=== PATIENT | female | born 1985 | race Caucasian/White ===

== ENCOUNTER 2018-03-27 08:42 | Emergency (ER) | payer OTHER ==
--- NOTE | 2018-03-27 08:52 | ER Report ---
History and Physical Time Seen By MD: 08:52 HPI/ROS This is an otherwise healthy 32-year-old female who presented to the emergency department with 24 hours of intermittent severe right sided pelvic pain that waxes and wanes. When she is having the episodes she describes the pain as 10 out of 10. Yesterday the pain was generalized, but now is more focal. 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 She denies nausea, vomiting, or diarrhea. She denies vaginal discharge. No vaginal bleeding. Remainder of the 14 system rev: Yes Allergies: Coded Allergies: No Known Drug Allergies (Unverified , 03/27/18) Reviewed Nurses Notes: Yes Old Medical Records Reviewed: Yes Constitutional Vital Sign - Last 24 Hours 03/27/18 03/27/18 03/27/18 03/27/18 08:42 08:48 08:57 09:00 Temp 97.9 Pulse 41 45 Resp 16 B/P (MAP) 129/84 129/84 (99) 119/76 (90) Pulse Ox 98 99 O2 Delivery Room Air 03/27/18 03/27/18 03/27/18 03/27/18 09:12 09:27 09:30 09:42 Pulse 50 40 45 B/P (MAP) 112/74 (87) Pulse Ox 94 97 95 03/27/18 03/27/18 03/27/18 03/27/18 09:57 10:00 10:12 10:27 Pulse 47 50 42 B/P (MAP) 119/79 (92) Pulse Ox 98 96 97 03/27/18 03/27/18 03/27/18 03/27/18 10:30 10:35 10:50 10:55 Pulse 41 45 57 B/P (MAP) 122/79 (93) Pulse Ox 97 96 97 03/27/18 03/27/18 03/27/18 03/27/18 11:00 11:10 11:25 11:30 Pulse 41 46 B/P (MAP) 119/71 (87) 121/69 (86) Pulse Ox 98 95 Physical Exam General Appearance: The patient is alert, has no immediate need for airway protection and no current signs of toxicity. Eyes: Pupils equal and round no injection. Respiratory: Chest is non tender, lungs are clear to auscultation. Cardiac: regular rate and rhythm Gastrointestinal: Abdomen is soft and non tender, no masses, bowel sounds normal. TTP of the right pelvic region Extremities have full range of motion and are non tender. Skin: No rashes or lesions. DIFFERENTIAL DIAGNOSIS: After history and physical exam differential diagnosis was considered for ovarian torsion, ovarian cyst, , appendicitis Medical Decision Making Data Points Result Diagram: 03/27/18 0854 03/27/18 0854 Laboratory Hematology Test 03/27/18 08:46 03/27/18 08:54 Urine Color Yellow Urine Clarity Slightly-cloudy Urine pH 6.0 pH (4.8-9.5) Urine Specific Shellman 1.023 Urine Protein Negative mg/dL (NEGATIVE) Urine Glucose (UA) Negative mg/dL (NEGATIVE) Urine Ketones Negative mg/dL (NEGATIVE) Urine Blood Negative (NEGATIVE) Urine Nitrite Negative (NEGATIVE) Urine Bilirubin Negative (NEGATIVE) Urine Urobilinogen Negative mg/dL (0.2-1.9) Urine Leukocyte Esterase Negative (NEGATIVE) Urine RBC <1 /HPF (0-2/HPF) Urine WBC 1 /HPF (0-5/HPF) Urine Squamous Epithelial Cells Many /LPF (</=FEW) Urine Bacteria Few /HPF (NONE-FEW) Urine Mucus Few /HPF (NONE-FEW) Red Blood Count 4.81 M/uL (4.17-5.56) Mean Corpuscular Volume 95.6 fL (80.0-96.0) Mean Corpuscular Hemoglobin 32.8 pg (26.0-33.0) Mean Corpuscular Hemoglobin Concent 34.3 g/dL (32.0-36.0) Red Cell Distribution Width 13.7 % (11.5-14.5) Mean Platelet Volume 8.6 fL (7.2-11.1) Neutrophils (%) (Auto) 61.8 % (39.4-72.5) Lymphocytes (%) (Auto) 29.0 % (17.6-49.6) Monocytes (%) (Auto) 7.6 % (4.1-12.4) Eosinophils (%) (Auto) 0.8 % (0.4-6.7) Basophils (%) (Auto) 0.8 % (0.3-1.4) Nucleated RBC Relative Count (auto) 0.0 /100WBC Neutrophils # (Auto) 3.2 K/uL (2.0-7.4) Lymphocytes # (Auto) 1.5 K/uL (1.3-3.6) Monocytes # (Auto) 0.4 K/uL (0.3-1.0) Eosinophils # (Auto) 0.0 K/uL (0.0-0.5) Basophils # (Auto) 0.0 K/uL (0.0-0.1) Nucleated RBC Absolute Count (auto) 0.00 K/uL Sodium Level 140 mmol/L (137-145) Potassium Level 3.6 mmol/L (3.5-5.0) Chloride Level 102 mmol/L (98-107) Carbon Dioxide Level 29 mmol/L (22-31) Blood Urea Nitrogen 18 mg/dl (7-18) Creatinine 1.00 mg/dl (0.52-1.04) Glomerular Filtration Rate Calc > 60.0 Random Glucose 108 mg/dl (75-110) Calcium Level 9.3 mg/dl (8.4-10.2) Total Bilirubin 0.8 mg/dl (0.2-1.3) Aspartate Amino Transf (AST/SGOT) 38 U/L (0-35) Alanine Aminotransferase (ALT/SGPT) 34 U/L (0-56) Alkaline Phosphatase 52 U/L (0-126) Total Protein 7.8 g/dl (6.3-8.2) Albumin 4.4 g/dl (3.5-5.0) Human Chorionic Gonadotropin, Qual Negative (NEGATIVE) Chemistry Test 03/27/18 08:46 03/27/18 08:54 Urine Color Yellow Urine Clarity Slightly-cloudy Urine pH 6.0 pH (4.8-9.5) Urine Specific Shellman 1.023 Urine Protein Negative mg/dL (NEGATIVE) Urine Glucose (UA) Negative mg/dL (NEGATIVE) Urine Ketones Negative mg/dL (NEGATIVE) Urine Blood Negative (NEGATIVE) Urine Nitrite Negative (NEGATIVE) Urine Bilirubin Negative (NEGATIVE) Urine Urobilinogen Negative mg/dL (0.2-1.9) Urine Leukocyte Esterase Negative (NEGATIVE) Urine RBC <1 /HPF (0-2/HPF) Urine WBC 1 /HPF (0-5/HPF) Urine Squamous Epithelial Cells Many /LPF (</=FEW) Urine Bacteria Few /HPF (NONE-FEW) Urine Mucus Few /HPF (NONE-FEW) White Blood Count 5.1 k/uL (4.5-11.0) Red Blood Count 4.81 M/uL (4.17-5.56) Hemoglobin 15.8 g/dL (12.0-16.0) Hematocrit 46.0 % (34.0-47.0) Mean Corpuscular Volume 95.6 fL (80.0-96.0) Mean Corpuscular Hemoglobin 32.8 pg (26.0-33.0) Mean Corpuscular Hemoglobin Concent 34.3 g/dL (32.0-36.0) Red Cell Distribution Width 13.7 % (11.5-14.5) Platelet Count 211 K/uL (150-450) Mean Platelet Volume 8.6 fL (7.2-11.1) Neutrophils (%) (Auto) 61.8 % (39.4-72.5) Lymphocytes (%) (Auto) 29.0 % (17.6-49.6) Monocytes (%) (Auto) 7.6 % (4.1-12.4) Eosinophils (%) (Auto) 0.8 % (0.4-6.7) Basophils (%) (Auto) 0.8 % (0.3-1.4) Nucleated RBC Relative Count (auto) 0.0 /100WBC Neutrophils # (Auto) 3.2 K/uL (2.0-7.4) Lymphocytes # (Auto) 1.5 K/uL (1.3-3.6) Monocytes # (Auto) 0.4 K/uL (0.3-1.0) Eosinophils # (Auto) 0.0 K/uL (0.0-0.5) Basophils # (Auto) 0.0 K/uL (0.0-0.1) Nucleated RBC Absolute Count (auto) 0.00 K/uL Glomerular Filtration Rate Calc > 60.0 Calcium Level 9.3 mg/dl (8.4-10.2) Total Bilirubin 0.8 mg/dl (0.2-1.3) Aspartate Amino Transf (AST/SGOT) 38 U/L (0-35) Alanine Aminotransferase (ALT/SGPT) 34 U/L (0-56) Alkaline Phosphatase 52 U/L (0-126) Total Protein 7.8 g/dl (6.3-8.2) Albumin 4.4 g/dl (3.5-5.0) Human Chorionic Gonadotropin, Qual Negative (NEGATIVE) Urinalysis Test 03/27/18 08:46 Urine Color Yellow Urine Clarity Slightly-cloudy Urine pH 6.0 pH (4.8-9.5) Urine Specific Shellman 1.023 Urine Protein Negative mg/dL (NEGATIVE) Urine Glucose (UA) Negative mg/dL (NEGATIVE) Urine Ketones Negative mg/dL (NEGATIVE) Urine Blood Negative (NEGATIVE) Urine Nitrite Negative (NEGATIVE) Urine Bilirubin Negative (NEGATIVE) Urine Urobilinogen Negative mg/dL (0.2-1.9) Urine Leukocyte Esterase Negative (NEGATIVE) Urine RBC <1 /HPF (0-2/HPF) Urine WBC 1 /HPF (0-5/HPF) Urine Squamous Epithelial Cells Many /LPF (</=FEW) Urine Bacteria Few /HPF (NONE-FEW) Urine Mucus Few /HPF (NONE-FEW) EKG/Imaging Imaging Results: Ultrasound of the pelvis was obtained. The results of the study are there is an 8x4 cm cyst of the right ovary with normal arterial and venous flow. The study was read by the radiologist. I viewed the images myself on the PACS system. ED Course/Re-evaluation ED Course 8x4 cm right sided ovarian cyst worrisome for intermittent torsion given her symptoms and size of cyst. Spoke with Dr. Barrientos who will take the patient to the OR. Decision to Disposition Date: Mar 27, 2018 Decision to Disposition Time: 12:07 Depart Departure Latest Vital Signs Vital Signs Date Time Temp Pulse Resp B/P (MAP) Pulse Ox O2 Delivery O2 Flow Rate FiO2 03/27/18 11:30 121/69 (86) 03/27/18 11:25 46 95 03/27/18 08:42 97.9 16 Room Air Impression: Primary Impression: Ovarian cyst Condition: Stable Disposition: Admitted from ER Problem Qualifiers Primary Impression: Ovarian cyst Laterality: right Qualified Codes: N83.201 - Unspecified ovarian cyst, right side RADHA REBOLLEDO MD Mar 27, 2018 08:52
[2018-03-27] MEDS ORDERED: NS(*) 0.9% 1000 ML BAG 1,000 ML IV ONE (09:08)
[2018-03-27 09:18] LABS: PLATELET COUNT, AUTOMATED 211 K/uL (150-450)
[2018-03-27] MEDS ORDERED: IOPAMIDOL 76% 75 ML INFUS BTL 0 ML ONE (09:22)
[2018-03-27] MEDS ORDERED: MORPHINE 4 MG/ML SDV IVP ONE ×2 (10:00→10:45)
[2018-03-27] MEDS ORDERED: ONDANSETRON 4 MG/2 ML VIAL IVP ONE (10:00)
[2018-03-27 11:30] VITALS: BP 121/69
[2018-03-27] MEDS ORDERED: PROPOFOL EMUL(*) 10MG/ML 20 ML 20 ML ONE (11:39)
[2018-03-27] MEDS ORDERED: ONDANSETRON 4 MG/2 ML VIAL ONE (11:39)
[2018-03-27] MEDS ORDERED: LIDOCAINE MPF 1% 5 ML VIAL ONE (11:39)
[2018-03-27] MEDS ORDERED: fentaNYL CITR 250 MCG/5 ML AMP ONE (11:39)
[2018-03-27] MEDS ORDERED: DEXAMETHASONE SOD PHOS 10MG/ML ONE (11:39)
[2018-03-27] MEDS ORDERED: MIDAZOLAM 2 MG/2 ML VIAL IVP PRN (11:40)
[2018-03-27] MEDS ORDERED: ceFAZolin(*) 2GM/D5W 50ML 50 ML IVPB ONE (11:40)
[2018-03-27] MEDS ORDERED: LIDOCAINE/SOD BICARB 8.4% SYR ID ONE (11:40)
[2018-03-27] MEDS ORDERED: KETOROLAC 30 MG/ML VIAL ONE (11:40)
[2018-03-27] MEDS ORDERED: FAMOTIDINE 20 MG/50 ML PREMIX IVPB ONE (11:40)
[2018-03-27] MEDS ORDERED: NORMOSOL R SOLN(*) 1000 ML BAG 1,000 ML IV PRN (11:40)
[2018-03-27] MEDS ORDERED: SUGAMMADEX SOD 200 MG/2 ML SDV ONE (11:47)
--- NOTE | 2018-03-27 11:58 | RADIOLOGY IMAGING REPORT ---
FACILITY: [facility] - [place] PATIENT NAME: Christel Hammond : 1985 MR: [id number] V: [id number] EXAM DATE: ORDERING PHYSICIAN: RADHA REBOLLEDO TECHNOLOGIST: [place] [facility] [place] Christel Hammond : 1985 Visit/Account:[id number] Date of Sevice: 03/27/2018 TRANSVAGINAL NON-OB HISTORY: sudden onset of right pelvic pain eval for torsion TECHNIQUE: Transvaginal ultrasound pelvis. COMPARISON: None. FINDINGS: Uterus: ; 7.1 cm length x 3.2 cm AP x 5.7 cm transverse. Myometrium: Unremarkable. Endometrium: Unremarkable; double thickness 9.6 mm. Cervix: Small amount of fluid in the endocervical canal. Ovaries: Right - 8.9 x 6.4 x 4.7 cm. There is a large complex cystic mass in the right ovary measuring 7 .7 x 4.2 x 4.3 cm which is immediately contiguous to a 2 x 1.8 x 2.5 cm complex cystic mass Left - 2.9 x 2.9 x 1.6 cm Blood flow is documented in each ovary by duplex Doppler ultrasound. Adnexa: Grossly unremarkable. Free pelvic fluid: There is a mild amount of free pelvic fluid. IMPRESSION: Right ovary is enlarged containing two contiguous complex cystic masses one measuring 7.7 x 4.2 x 4.3 cm and one measuring 2 x 1.8 x 2.5 cm. There is a mild amount of free pelvic fluid No evidence of ovarian torsion Report Dictated By: Khadijah Marcus MD at 03/27/2018 11:49 AM Report E-Signed By: Khadijah Marcus MD at 03/27/2018 11:53 AM WSN:[id number]
--- NOTE | 2018-03-27 12:00 | History & Physical ---
History of Present Illness Chief Complaint Righ pelvic pain History of Present Illness 32-year-old G0 presented to the emergency department today with complaints of severe right lower quadrant pain. She reports this pain started out as a vague pain yesterday morning. It has progressively worsened over the last 24 hours. This morning, it became severe. It does come in waves of severity. When she presented to the emergency department, Dr. Singer reports she had extreme peritoneal signs. She denies any nausea, vomiting, fevers or chills. She denies any abnormal vaginal bleeding. She had an ultrasound performed which confirmed an 8 x 4 cm cystic right ovarian mass. On ultrasound, there is arterial and venous flow, but in the emergency department she would have intermittent peritoneal signs. History Obstetrical History: Nulliparous Past Medical History: PMH: None PSH: None Allergies: Coded Allergies: No Known Drug Allergies (Unverified , 03/27/18) Social History: No T/E/D. . Works at [employer]. Review of Systems Constitutional: No Fever Neurological: No Syncope Eyes: No Vision Change ENT: No Hearing Loss Cardiovascular: No Chest Pain Respiratory: No Shortness of Breath, No Cough Gastrointestinal: No Nausea, No Vomiting, No Diarrhea; Abdominal Pain Genitourinary: No Dysuria Musculoskeletal: No Pain Psychiatric: No Depression, No Anxiety Exam General Exam Vital Signs Vital Signs Date Time Temp Pulse Resp B/P (MAP) Pulse Ox O2 Delivery O2 Flow Rate FiO2 03/27/18 11:35 90 03/27/18 11:30 121/69 (86) 03/27/18 11:25 46 03/27/18 08:42 97.9 16 Room Air General Apperance: Alert/Awake/No Acute Distress Neuro: No Gross deficits Eyes: Normal Extraocular Movement & Vison Cardiovascular: Regular Rate and Rhythm Respiratory: No Respiratory Distress, Clear to Auscultation Extremities: No Cyanosis,Clubbing or Edema Integumentary: Skin Intact without Lesions or Rash Psychological: Alert & Oriented X3, Appropriate Mood & Affect Medical Decision Making Data Points Result Diagram: 03/27/18 0854 03/27/18 0854 Assessment and Plan Problems: (1) Ovarian cyst Assessment & Plan: 32-year-old G0 presents with an 8x4 cystic ovarian mass. Despite blood flow visualized on ultrasound, her symptoms appear consistent with intermittent torsion. Due to these findings, I have recommended a diagnostic laparoscopy for further evaluation. I discussed with the patient and her the possibility of right oophorectomy, cystectomy, or cystotomy. She is aware of the risks, benefits and alternatives. We'll proceed with surgery as soon as an anesthesiologist is available. She will receive Ancef preoperatively for pr ophylactic antibiotics. Problem Qualifiers (1) Ovarian cyst: Laterality: right Qualified Codes: N83.201 - Unspecified ovarian cyst, right side EVARISTO COATES MD Mar 27, 2018 12:00
[2018-03-27] MEDS ORDERED: ONDA4TAB SL (14:09)
[2018-03-27] MEDS ORDERED: IBUP800T37 PO (14:09)
[2018-03-27] MEDS ORDERED: OXYC-865 PO (14:09)
== END 2018-03-27 11:38 | disposition other institution (70) ==
LOC: ER 08:59
DX: N83.201 Unspecified ovarian cyst, right side (principal)
CPT/HCPCS: 76830; 81001; 84703; 85025; 96361; 96374; 96375; 96376; 99284; J1100; J1885; J2001; J2270; J2405; J2704; J3010; J3490; J7030; 82040; 82247; 82310; 82374; 82435; 82565; 82947; 84075; 84132; 84155; 84295; 84450; 84460; 84520; Q9967

== ENCOUNTER 2018-03-27 11:56 | Day surgery (SDC) | payer OTHER ==
[2018-03-27] MEDS ORDERED: BUPIV/EPI 0.25% 1:200,000 50ML INFIL ONE (11:58)
[2018-03-27] MEDS ORDERED: SCOPOLAMINE 1.5 MG PATCH TD ONE (12:15)
[2018-03-27] MEDS ORDERED: MIDAZOLAM 2 MG/2 ML VIAL IVP PRN (12:20)
[2018-03-27] MEDS ORDERED: ceFAZolin(*) 2GM/D5W 50ML 50 ML IVPB ONE (12:30)
[2018-03-27] MEDS ORDERED: HALOPERIDOL LACT 5 MG/ML VIAL IM ONE (12:32)
[2018-03-27] MEDS ORDERED: NS 0.9% IRRIGATION 1000ML PLCT IR ONE (13:29)
[2018-03-27] MEDS ORDERED: NORMOSOL R SOLN(*) 1000 ML BAG 1,000 ML IV ONE (13:56)
[2018-03-27] MEDS ORDERED: OXYC-865 PO (14:09)
[2018-03-27] MEDS ORDERED: IBUP800T37 PO (14:09)
[2018-03-27] MEDS ORDERED: ONDA4TAB SL (14:09)
--- NOTE | 2018-03-27 14:10 | Short(Outpt) Discharge Summary ---
Discharge Summary Reason for Hosp/Final Diag: (1) Status post ovarian cystectomy Hospital Course & Plan: S/p dx lscope with right ovarian cystectomy for ovarian torsion Departure Discharge to: Home, Self Care Discharge Instructions Home Meds Active Scripts Oxycodone Hcl/Acetaminophen (PERCOCET 5-325 MG TABLET) 1 Each Tablet, 1 TAB PO Q4-6H PRN for pain, #20 TAB 0 Refills Prov:EVARISTO COATES MD 03/27/18 Follow up Referrals: FULLER BRUSH [facility] - In Two Weeks @ [facility] [place] with EVARISTO COATES MD Diet: Regular Activity: No Heavy Lifting EVARISTO COATES MD Mar 27, 2018 14:10
--- NOTE | 2018-03-27 14:12 | Post Operative Note ---
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
[2018-03-27 15:00] VITALS: BP 109/68
[2018-03-27 15:30] VITALS: BP 117/63
--- NOTE | 2018-03-27 15:55 | OPERATIVE REPORT 1 ---
EVENT DATE: March 27, 2018 SURGEON: Maryann Barrientos MD ANESTHESIOLOGIST: Joshua Vinson MD ANESTHESIA: General endotracheal tube anesthetic. PREOPERATIVE DIAGNOSES 1. Right pelvic pain with suspected ovarian torsion. 2. Right ovarian mass. POSTOPERATIVE DIAGNOSIS Right ovarian torsion with large cystic mass. PROCEDURES PERFORMED 1. Diagnostic laparoscopy. 2. Laparoscopic right ovarian cystectomy and relief of torsion. SPECIMENS REMOVED Right ovarian cyst wall. INTRAVENOUS FLUIDS 1000 mL URINE OUTPUT 50 mL ESTIMATED BLOOD LOSS Minimal. INDICATIONS FOR PROCEDURE This patient is a 32-year-old zero who presented to the Emergency Department with severe, acute onset right pelvic pain. During her evaluation, an ultrasound revealed an 8 x 4 right ovarian mass with blood flow at the time. However, based on her clinical exam, it appeared consistent with an intermittent right ovarian torsion. She, therefore, was consented for surgery and taken back to the operating room. Please see the history and physical for full details. DESCRIPTION OF PROCEDURE The patient was properly identified and taken to the operating room. She was placed under general anesthesia and placed in the dorsal lithotomy position and prepped and draped in the usual fashion for a laparoscopic procedure. She did receive Ancef preoperatively for prophylactic antibiotics and had SCDs on and running. A speculum was placed into the vagina to visualize the cervix, which was nulliparous and without lesion. The anterior lip of the cervix was grasped with an Allis clamp, and an acorn uterine manipulator was placed. The bladder was drained of 50 mL of clear yellow urine. The legs were then brought down to the supine position, and attention was turned to the laparoscopic portion of this procedure. A Veress needle was proven to be tested. The Veress needle was placed through the umbilicus using the double click test, and insufflation was obtained with CO2. A 5 mm infraumbilical incision was then made with the scalpel after infiltrating 0.25% Marcaine with epinephrine. The laparoscope with the 5 mm port was then introduced under direct visualization, confirming the intra- abdominal cavity. Two additional ports were planned, one on the right and one on the left side. Marcaine 0.25% with epinephrine was infiltrated, followed by a scalpel 5 mm incision, followed by introduction of the trocar under direct visualization. Examination of the superior abdomen revealed a normal-appearing liver, stomach, and gallbladder, although the gallbladder did seem slightly distended. Attention was then turned to the pelvis, and there were no adhesions to the anterior abdominal wall. The patient was placed in Trendelenburg, and evaluation of the pelvis confirmed a right ovarian torsion. The cystic mass of the right ovary was torsed twice on itself. This was relieved with an atraumatic grasper, and confirmation of a large cystic mass of the right ovary was made. The fallopian tube on the right side appeared within normal limits. The uterus appeared within normal limits, and the left tube and ovary appeared normal. At this time, the cystic mass on the right side was opened up using a combination of scissors and Gyrus coagulation. The first body of the cyst was drained of clear serous fluid. A second body of the cyst was then drained with some mucus-type material. All of this was relatively thin and clear in appearance. Once this was completed, the cyst wall was able to be grasped and was started to be from the normal ovarian tissue. A fourth trocar site was then planned suprapubically, and a 5 mm port was placed through that incision. The patient's left incision was then extended to accommodate an 11 mm trocar for an Endo Catch bag later. Once this was completed, the cyst wall was able to be further removed from the underlying ovarian tissue, and then the cyst wall was taken out with an Endo Catch bag. The right ovary was then severely distended, and part of the remainder of the distended ovarian mucosa was then excised using a Gyrus with attempts to leave as much of the normal ovarian tissue as possible. Once this was completed, hemostasis was assured with a Gyrus, and copious irrigation of the ovary was performed. A small amount of Panda was placed in the bed of the center part of the ovary where the cyst wall had been removed. Hemostasis was again assured. The pelvis was then cleared of any additional fluid, and irrigation was performed. Attention was then turned to the left trocar site where a Kareem-Citlali device was used to close the fascia using an 0 Vicryl. Once this was completed, insufflation was relieved, and all of the other trocars were removed. The subcuticular incisions were closed with 4-0 Monocryl, followed by Dermabond. The Allis clamp and uterine manipulator were then removed without difficulty, and the procedure was done. All of the sponge and instrument counts were correct at the end of the procedure. The patient tolerated the procedure well and recovered in the post- anesthesia care unit. PIA
[2018-03-27 16:00] VITALS: BP 117/63
[2018-03-27 16:30] VITALS: BP 108/67
== END 2018-03-27 15:00 | disposition home or self-care (01) ==
LOC: OR 11:56
PROVIDERS: ATTEND Obstetrics & Gynecology
DX: N83.511 Torsion of right ovary and ovarian pedicle (principal); N83.201 Unspecified ovarian cyst, right side
CPT/HCPCS: 58662; 88305; J1630; J2250; J0690

== ENCOUNTER → 2018-08-05 | Outpatient (REF) | payer OTHER ==
[~2018-08-05] MED LIST: IBUP800T37 PO; ONDA4TAB SL; OXYC-865 PO
[2018-08-05 11:04] LABS: PLATELET COUNT, AUTOMATED 214 K/uL (150-450)
== END ==
LOC: ZZSTITCHES 10:23
PROVIDERS: ATTEND Physician Assistant
DX: J03.90 Acute tonsillitis, unspecified (principal); R50.9 Fever, unspecified
CPT/HCPCS: 82040; 82247; 82310; 82374; 82435; 82565; 82947; 84075; 84132; 84155; 84295; 84450; 84460; 84520; 85025; 86308; 87070; 87077; 87207